=== PATIENT | female | born 1990 | race Caucasian/White ===

== ENCOUNTER 2022-06-13 05:35 | Day surgery (SDC) | payer MEDICAID ==
[2022-06-12 16:59] LABS: HCG,QUAL RESULT NEGATIVE (NEGATIVE)
[~2022-06-13] VITALS: Ht 165.1 cm; Wt 79.0 kg
[2022-06-13] MEDS ORDERED: ACETAMINOPHEN I.V. 1000 MG 100 ML IV ONE (07:18)
[2022-06-13] MEDS ORDERED: fentaNYL CITRATE 250 MCG/5 ML AMP ONE (07:42)
[2022-06-13] MEDS ORDERED: EPINEPHrine HCL 1 MG/ML VIAL ONE (07:42)
[2022-06-13] MEDS ORDERED: NS 1000 ML IV.SOLN IV ONE (07:42)
[2022-06-13] MEDS ORDERED: LIDOCAINE/EPI 1% 1:100000 20 ML VIAL ONE (07:42)
[2022-06-13] MEDS ORDERED: DESFLURANE 15 MIN GAS INH ONE (07:42)
[2022-06-13] MEDS ORDERED: MIDAZOLAM HCL 5 MG/5 ML VIAL ONE (07:42)
[2022-06-13] MEDS ORDERED: MUPIROCIN 2% TOPICAL OINTMENT 22 GM ONE (07:42)
[2022-06-13] MEDS ORDERED: DEXAMETHASONE SOD PHOSPHATE 4 MG/ML VIAL ONE (07:42)
[2022-06-13] MEDS ORDERED: PROPOFOL 200MG/ 20ML VIAL (DIPRIVAN) IV ONE (07:42)
[2022-06-13] MEDS ORDERED: OXYMETAZOLINE HCL 0.05% NASAL SPRAY NS ONE (07:42)
[2022-06-13] MEDS ORDERED: SUGAMMADEX SODIUM 200 MG/2 ML VIAL IV ONE (07:42)
[2022-06-13] MEDS ORDERED: NS IRRIG SOLN 1000 ML IR ONE (07:42)
[2022-06-13] MEDS ORDERED: LIDOCAINE 2%, 20 ML MDV ONE (07:42)
[2022-06-13] MEDS ORDERED: LIDOCAINE 1% 10 MG/ML, 20 ML MDV ONE (07:42)
[2022-06-13] MEDS ORDERED: LR 1,000 ML IV.SOLN IV ONE (07:42)
[2022-06-13] MEDS ORDERED: ONDANSETRON HCL 4 MG/2 ML VIAL ONE (07:42)
[2022-06-13] MEDS ORDERED: ROCURONIUM BROMIDE 10 MG/ML (ZEMURON) ONE (07:42)
[2022-06-13] MEDS ORDERED: LABETALOL 100 MG/ 20ML VIAL IVP PRN (08:45)
[2022-06-13] MEDS ORDERED: MEPERIDINE HCL/PF 25 MG/ML DISP.SYRIN IVP PRN (08:45)
[2022-06-13] MEDS ORDERED: MIDAZOLAM HCL 2 MG/2 ML VIAL (VERSED) IVP PRN (08:45)
[2022-06-13] MEDS ORDERED: HYDROmorphone 1 MG/ML INJ. CARTRIDGE IVP PRN ×2 (08:45)
[2022-06-13] MEDS ORDERED: hydrALAZINE HCL 20 MG/ML VIAL IVP PRN (08:45)
[2022-06-13] MEDS ORDERED: METOCLOPRAMIDE HCL 10 MG/2 ML VIAL IVP PRN (08:45)
[2022-06-13] MEDS ORDERED: LR 1,000 ML IV SCH (08:45)
[2022-06-13] MEDS ORDERED: HYDROmorphone 1 MG/ML INJ. CARTRIDGE ONE (11:29)
[2022-06-13 11:42] VITALS: BP_SYST 129
== END 2022-06-13 14:15 | disposition home or self-care (01) ==
LOC: SMU 05:35 → SDS 05:35
PROVIDERS: ATTEND Otolaryngology
DX: J34.89 Other specified disorders of nose and nasal sinuses (principal); J34.2 Deviated nasal septum; D38.5 Neoplasm of uncertain behavior of other respiratory organs; J30.1 Allergic rhinitis due to pollen; I10 Essential (primary) hypertension; G47.33 Obstructive sleep apnea (adult) (pediatric); F32.A Depression, unspecified; Z99.89 Dependence on other enabling machines and devices; Z20.822 Contact with and (suspected) exposure to COVID-19; Z79.899 Other long term (current) drug therapy
CPT/HCPCS: 36415; 87426; 31256; 30520; 30140; 84703; 88304; 88311; J3490; J1100; J0171; J2001 ×2; J2250; J2405; J2704; J3010; J1170; J7120; J7030; J0131